=== PATIENT | male | born 1995 | race Caucasian/White ===

== ENCOUNTER → 2017-02-11 | Outpatient (CLI) | payer BC, OTHER ==
--- NOTE | 2017-02-11 11:52 | REP ---
Maxillofacial CT without IV contrast: Axial images are acquired helical scanning and a reformatted in the, plain. The frontal sinuses are clear. Opacification of a single single ethmoid sinus air cell. The sphenoid sinuses are clear. The mastoid air cells are clear. There is a 9.5 mm polyp/cyst anteromedially in the right maxillary sinus. There is a 17 mm polyp/cyst anteriorly inferiorly in the left maxillary sinus. These are compatible with chronic sinusitis. There is mucoid impaction of the ostiomeatal complexes bilaterally. The skull base and sella are unremarkable. The orbits, ocular lenses and globes are unremarkable. Very minimal nasal septal deviation. Impression: There is opacification of a single ethmoid air cell. There is a right maxillary sinus cyst/polyp and there is a left maxillary cyst/polyp. The ostiomeatal complexes demonstrate mucosal impaction bilaterally. Signed by Danny Doll MD 02/11/2017 11:44 A
== END ==
LOC: M RAD 10:07
PROVIDERS: ATTEND Family Medicine
DX: J34.1 Cyst and mucocele of nose and nasal sinus (principal); J34.89 Other specified disorders of nose and nasal sinuses

== ENCOUNTER 2019-10-14 12:57 | Emergency (ER) | payer BC, OTHER ==
[~2019-10-14] VITALS: Ht 180.3 cm; Wt 69.1 kg
[2019-10-14] MEDS ORDERED: NS 1,000 ML IV ONE (13:30)
[2019-10-14 14:02] LABS: BASO % 0.5 % (0.0-1.0); EOS % 0.3 % (0.0-3.0); HEMATOCRIT 43.2 % (42.0-52.0); HEMOGLOBIN 14.7 g/dl (13.5-17.5); LYMPH # 1.3 10^3/uL (1.5-5.0); LYMPH % 19.6 % (24.0-44.0); MEAN CORPUSCULAR HEMOGLOBIN 29.9 pg (27.0-33.0); MEAN CORPUSCULAR VOLUME 87.8 fl (80.0-96.0); MONO # 0.6 10^3/uL (0.0-0.8); MONO % 9.1 % (0.0-5.0); NEUTROPHILS # 4.5 10^3/uL (1.5-8.5); NEUTROPHILS % 70.2 % (36.0-66.0); PLATELET COUNT, AUTOMATED 330 10^3/uL (150-450); RED BLOOD COUNT 4.92 10^6/uL (4.30-6.10); WHITE BLOOD COUNT 6.4 10^3/uL (4.0-10.0)
[2019-10-14 14:14] LABS: INR 1.04; PROTHROMBIN TIME 13.3 SECONDS (11.8-14.0)
[2019-10-14 14:31] LABS: ALBUMIN 3.8 GM/DL (3.2-5.2); ALT/SGPT 18 U/L (12-78); BILIRUBIN,DIRECT 0.1 MG/DL (0.0-0.2); BILIRUBIN,TOTAL 0.4 MG/DL (0.2-1.0); BLOOD UREA NITROGEN 8 MG/DL (7-18); C REACTIVE PROTEIN QUANTITATIV 0.99 MG/DL (0.00-0.30); CALCIUM LEVEL 9.4 MG/DL (8.5-10.1); CARBON DIOXIDE LEVEL 29 MEQ/L (21-32); CHLORIDE LEVEL 104 MEQ/L (98-107); CK-MB VALUE MASS 3.4 NG/ML (<3.6); CPK CREATINE PHOSPHOKINASE 186 U/L (39-308); CREATININE FOR GFR 0.84 MG/DL (0.70-1.30); GLOMERULAR FILTRATION RATE > 60.0 (>60); GLUCOSE, FASTING 102 MG/DL (70-100); LIPASE 102 U/L (73-393); MB/CK RELATIVE INDEX 1.83 (< OR =4); POTASSIUM SERUM 3.8 MEQ/L (3.5-5.1); SODIUM LEVEL 138 MEQ/L (136-145); TOTAL PROTEIN 7.8 GM/DL (6.4-8.2); TROPONIN I < 0.02 NG/ML (< 0.10)
[2019-10-14 14:33] LABS: ERYTHROCYTE SEDIMENTATION RATE 21 mm/hr (0-15)
[2019-10-14] MEDS ORDERED: ISOVUE-370 76% 100ML VIAL (Q9967) As Ordered ONE (14:36)
--- NOTE | 2019-10-14 15:10 | REP ---
Bilateral lower extremity Duplex Doppler venous ultrasound: Real time compression and duplex Doppler interrogation of the bilateral lower extremity deep venous system is performed. Bilaterally, the common femoral, superficial femoral and popliteal veins are fully compressible with transducer pressure and demonstrate normal spontaneous and phasic flow, without evidence of deep venous thrombosis. Impression: No evidence of deep venous thrombosis of the bilateral lower extremity femoral popliteal venous system. Electronically Signed by Danny Benitez MD 10/14/2019 03:01 P
[2019-10-14 16:08] VITALS: BP 148/89
--- NOTE | 2019-10-14 20:50 | ECGEPIP ---
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
--- NOTE | 2019-10-15 07:23 | REP ---
CT ANGIOGRAM CHEST: TECHNIQUE: Axial contrast enhanced images from the thoracic inlet to the upper abdomen using 100 mL Isovue 370 intravenous contrast material with multiplanar reformations. No CT evidence of pulmonary embolism. There is no thoracic aortic aneurysm or dissection. The heart is normal in size. There is no mediastinal, hilar, or chest wall lymphadenopathy. There is no pleural or pericardial effusion. There is no infiltrate in either lung. The visualized upper abdominal structures are unremarkable. IMPRESSION: No CT evidence of pulmonary embolism. No evidence of acute infiltrate. Electronically Signed by Danny Benitez MD 10/15/2019 11:59 A
== END 2019-10-14 16:04 | disposition home or self-care (01) ==
LOC: M ED 12:57
DX: R07.81 Pleurodynia (principal); F19.10 Other psychoactive substance abuse, uncomplicated; R00.0 Tachycardia, unspecified; F17.200 Nicotine dependence, unspecified, uncomplicated
CPT/HCPCS: 71275; 80048; 80076; 82550; 82553; 83690; 84443; 84484; 85025; 85610; 85652; 85730; 86140; 93005; 93041; 93970; 94760; 96360; 96361; 99285; Q9967

== ENCOUNTER 2020-01-20 15:42 | Emergency (ER) | payer BC, OTHER ==
[~2020-01-20] VITALS: Ht 177.8 cm; Wt 74.5 kg
[2020-01-20 16:32] LABS: HEMATOCRIT 45.5 % (42.0-52.0); HEMOGLOBIN 15.5 g/dl (13.5-17.5); MEAN CORPUSCULAR HEMOGLOBIN 30.5 pg (27.0-33.0); MEAN CORPUSCULAR HGB CONC 34.1 g/dl (32.0-36.5); MEAN CORPUSCULAR VOLUME 89.6 fl (80.0-96.0); PLATELET COUNT, AUTOMATED 255 10^3/uL (150-450); RED BLOOD COUNT 5.08 10^6/uL (4.30-6.10); WHITE BLOOD COUNT 6.5 10^3/uL (4.0-10.0)
--- NOTE | 2020-01-20 16:44 | REP ---
Clinical: Substance abuse . Comparison: None . Findings: The mediastinum and cardiac silhouette are stable and within normal limits for portable technique. The lung [place] ri[place] are clear without acute consolidation, effusion, or pneumothorax. Skeletal structures are intact. Impression: No acute cardiopulmonary process appreciated. Electronically Signed by Gurwinder Vargas MD 01/20/2020 04:35 P
[2020-01-20 17:09] LABS: ACETAMINOPHEN LEVEL < 2.0 UG/ML (10.0-30.0); ALBUMIN 3.9 GM/DL (3.2-5.2); ALT/SGPT 19 U/L (12-78); BILIRUBIN,DIRECT < 0.1 MG/DL (0.0-0.2); BILIRUBIN,TOTAL 0.2 MG/DL (0.2-1.0); BLOOD UREA NITROGEN 9 MG/DL (7-18); CALCIUM LEVEL 8.4 MG/DL (8.5-10.1); CARBON DIOXIDE LEVEL 25 MEQ/L (21-32); CHLORIDE LEVEL 107 MEQ/L (98-107); CREATININE FOR GFR 0.76 MG/DL (0.70-1.30); ETHYL ALCOHOL (ETHANOL) 0.005 % (0.000-0.010); GLOMERULAR FILTRATION RATE > 60.0 (>60); GLUCOSE, FASTING 89 MG/DL (70-100); POTASSIUM SERUM 4.1 MEQ/L (3.5-5.1); SALICYLATE LEVEL 1.9 MG/DL (5.0-30.0); SODIUM LEVEL 139 MEQ/L (136-145); TOTAL PROTEIN 7.4 GM/DL (6.4-8.2)
[2020-01-20] MEDS ORDERED: CLOTCRE3 TOP (17:09)
[2020-01-20 17:10] LABS: AMPHETAMINES LEVEL URINE NEGATIVE (NEGATIVE); BARBITURATES URINE NEGATIVE (NEGATIVE); BENZODIAZEPINES URINE POSITIVE (NEGATIVE); CANNABINOIDS URINE POSITIVE (NEGATIVE); COCAINE METABOLITE URINE NEGATIVE (NEGATIVE); METHADONE URINE NEGATIVE (NEGATIVE); OPIATES URINE POSITIVE (NEGATIVE); PHENCYCLIDINE URINE NEGATIVE (NEGATIVE)
[2020-01-20] MEDS ORDERED: NS 1,000 ML IV ONE (17:15)
[2020-01-20 18:15] VITALS: BP 111/57
--- NOTE | 2020-01-20 19:21 | ECGEPIP ---
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
== END 2020-01-20 18:31 | disposition home or self-care (01) ==
LOC: EDBD 15:42 → M ED 15:42
DX: F19.10 Other psychoactive substance abuse, uncomplicated (principal); B35.6 Tinea cruris
CPT/HCPCS: 71045; 80048; 80076; 80307; 84443; 85027; 93005; 93041; 96360; 99285; G0480

== ENCOUNTER 2020-04-26 23:44 | Inpatient (IN) | payer BC, OTHER ==
[~2020-04-26] VITALS: Ht 180.3 cm; Wt 72.5 kg
[~2020-04-26 23:44] MED LIST: CLOTCRE3 TOP
[2020-04-27] MEDS ORDERED: NS 1,000 ML IV ONE (00:45)
[2020-04-27] MEDS ORDERED: cefTRIAXone SOD 2 GM in D5W MINI-BAG PLUS 50 ML IV ONE (00:45)
[2020-04-27 01:07] LABS: BASO % 0.2 % (0.0-1.0); HEMATOCRIT 43.3 % (42.0-52.0); HEMOGLOBIN 14.5 g/dl (13.5-17.5); LYMPH # 0.4 10^3/uL (1.5-5.0); LYMPH % 4.5 % (24.0-44.0); MEAN CORPUSCULAR HEMOGLOBIN 31.7 pg (27.0-33.0); MEAN CORPUSCULAR HGB CONC 33.5 g/dl (32.0-36.5); MEAN CORPUSCULAR VOLUME 94.5 fl (80.0-96.0); MONO # 0.3 10^3/uL (0.0-0.8); MONO % 3.4 % (0.0-5.0); NEUTROPHILS # 8.9 10^3/uL (1.5-8.5); NEUTROPHILS % 91.7 % (36.0-66.0); PLATELET COUNT, AUTOMATED 249 10^3/uL (150-450); RED BLOOD COUNT 4.58 10^6/uL (4.30-6.10); WHITE BLOOD COUNT 9.7 10^3/uL (4.0-10.0)
[2020-04-27 01:16] LABS: INR 1.05; PROTHROMBIN TIME 13.9 SECONDS (11.8-14.0)
[2020-04-27 01:43] LABS: ALBUMIN 3.1 GM/DL (3.2-5.2); ALT/SGPT 30 U/L (12-78); BILIRUBIN,DIRECT < 0.1 MG/DL (0.0-0.2); BILIRUBIN,TOTAL 0.2 MG/DL (0.2-1.0); BLOOD UREA NITROGEN 16 MG/DL (7-18); CALCIUM LEVEL 8.3 MG/DL (8.5-10.1); CARBON DIOXIDE LEVEL 25 MEQ/L (21-32); CHLORIDE LEVEL 109 MEQ/L (98-107); CREATININE FOR GFR 0.73 MG/DL (0.70-1.30); GLOMERULAR FILTRATION RATE > 60.0 (>60); GLUCOSE, FASTING 85 MG/DL (70-100); POTASSIUM SERUM 4.4 MEQ/L (3.5-5.1); SODIUM LEVEL 137 MEQ/L (136-145); THYROID STIMULATING HORMONE 0.209 uIU/ML (0.358-3.740); THYROXINE (T4) 7.1 UG/DL (4.5-12.0)
--- NOTE | 2020-04-27 02:01 | REPVR ---
PROCEDURE INFORMATION: Exam: XR Chest, 1 View Exam date and time: 04/27/2020 1:46 AM Age: 24 years old Clinical indication: Other: Dyspnea/cough TECHNIQUE: Imaging protocol: XR of the chest Views: 1 view. COMPARISON: ND Chest, 1 view 01/20/2020 4:09 PM FINDINGS: Lungs: Bilateral perihilar infiltrates which are new since the prior study. Pleural space: Unremarkable. No pleural effusion. No pneumothorax. Heart/Mediastinum: Upper normal heart size which is increased. Bones/joints: Unremarkable. IMPRESSION: 1. Bilateral perihilar infiltrates which are new since 01/20/2020. 2. Upper normal heart size which appears increased from the prior study. Electronically signed by: James Sanchez On 04/27/2020 02:01:00 AM
[2020-04-27] MEDS ORDERED: ISOVUE-370 76% 100ML VIAL As Ordered ONE (02:21)
--- NOTE | 2020-04-27 03:01 | REPVR ---
PROCEDURE INFORMATION: Exam: CT Angiography Chest With Contrast Exam date and time: 04/27/2020 2:36 AM Age: 24 years old Clinical indication: Other: Hemoptysis; Additional info: Hemoptysis, infiltrates TECHNIQUE: Imaging protocol: Computed tomographic angiography of the chest with intravenous contrast. 3D rendering (Not supervised by radiologist): MIP and/or 3D reconstructed images were created by the technologist. Radiation optimization: All CT scans at this facility use at least one of these dose optimization techniques: automated exposure control; mA and/or kV adjustment per patient size (includes targeted exams where dose is matched to clinical indication); or iterative reconstruction. Contrast material: ISOVUE 370; Contrast volume: 75 ml; Contrast route: INTRAVENOUS (IV); COMPARISON: CT ANGIO CHEST 10/14/2019 2:39 PM FINDINGS: Pulmonary arteries: The main pulmonary artery measures 29 mm. No pulmonary embolism is identified. Aorta: The ascending thoracic aorta measures 33 mm. Lungs: Bilateral ground-glass pulmonary infiltrates which are greatest in the upper lobes and right middle lobe and lingula and are relatively symmetric. There are some rounded areas of early consolidation within the underlying areas ground-glass infiltrate. There are some areas of crazy paving in the upper lobes. There is slight interstitial interlobular thickening in the lung bases. Pleural space: Unremarkable. No pneumothorax. No pleural effusion. Heart: Unremarkable. No cardiomegaly. No pericardial effusion. Lymph nodes: Unremarkable. No enlarged lymph nodes. Bones/joints: Unremarkable. No acute fracture. Soft tissues: Unremarkable. IMPRESSION: 1. Moderate symmetric bilateral pulmonary infiltrates with some rounded localized areas of consolidation which are greatest in the upper lobes, right middle lobe and lingula but also involve the lower lobes to a lesser degree consistent with pneumonia which is new since 10/14/2019. 2. Otherwise negative CTA chest. No pulmonary embolism is identified. Electronically signed by: James Sanchez On 04/27/2020 03:01:15 AM
[2020-04-27] MEDS ORDERED: AZITHROMYCIN INJ 500 MG, VIAL MATE ADAPTER 1 EACH in D5W 250 ML IV ONE (03:30)
[2020-04-27] MEDS ORDERED: ALBUTEROL 90 MCG/ACT 8GM HFA INHALER INH PRN (04:00)
[2020-04-27] MEDS ORDERED: IPRATROPIUM 0.5MG/ALBUTEROL 2.5MG INH SOL UD 3ML (DUONEB) NEB PRN (04:00)
[2020-04-27 04:41] LABS: FREE T3 1.7 PG/ML (2.2-4.0)
[2020-04-27 05:30] VITALS: BP 127/80
--- NOTE | 2020-04-27 05:34 | HPEPDOC ---
[facility] Medical History & Physical Date of Admission Apr 27, 2020 Date of Service: Apr 27, 2020 Attending Physician: Shonda Rodríguez MD History and Physical CHIEF COMPLAINT: hemoptysis HISTORY OF PRESENT ILLNESS: Patient is a 24 year old male who states he laid down for a nap at about 1800 on 04/27 and woke up 2-3 hours later he was woken up by a friend and immediately felt short of breath, coughing up dark, foamy, bloody sputum, and vomiting yellow emesis 2-3x. He ultimately elected to call EMS and was found to be satting in the 80s on room air requiring 4L O2 NC. When asked to quantify the amount of mixed foamy blood he coughed up he indicated it was a little less than half the volume of a nearby 355ml bottle of soda. He states the blood is mixed with dark colored phlegm, denies any nose bleeding, or blood in his emesis, denies any fevers, chills, night sweats, or recent unexpected weight change, skin rashes, hematuria, melena, hematochezia. He denies the use of NSAIDs, blood thinners, does not vape, has no history of lung disease, or bleeding disorders. The patient admits to a fairly extensive drug history, his most recent IV heroin use was ~6 months ago, but he states since then he and his monogamous girlfriend have been checked for HIV/hepatitis and were found to be clean. Since then, he has predominantly been snorting heroin a couple times/week, occasionally smoking meth (most recently 2 weeks ago), and regularly smoking marijuana (from a bong). PAST MEDICAL HISTORY: #. Polysubstance abuse #. Nicotine use disorder PAST SURGICAL HISTORY: None SOCIAL HISTORY: Patient smokes 1/4PPD for "many years" denies vaping, drinks a 6 pack of beer 2/week, and admits to snorting heroin 2x/week (most recently in AM on 04/26/2020), smokes meth (last done 2 weeks ago), has a hx of IV heroin use (last injected 6 months ago), and smokes marijuana from a bong on a regular basis, u nclear if he ever vapes marijuana. He denies cocaine, PCP or any other illicit drug use. 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 No pets at home. Denies any history of foreign travel or travel outside of the [facility]. FAMILY HISTORY: grandmother of lung cancer in her 70's Denies family history of bleeding disorders ALLERGIES: Please see below. REVIEW OF SYSTEMS: Constitutional: Denies fevers, chills, night sweats, or recent unexpected weight change HEENT: Denies Headaches, head trauma, No visual changes or eye pain, denies nose bleeds, or difficulty swallowing Cardiovascular: Denies palpitations, or orthopnea. Admits to pleuritic chest pain Respiratory: Denies wheezing. Admits to cough, hemoptysis, and shortness of breath GI: Denies abdominal pain, diarrhea or constipation, melena, hematochezia, admits to nausea, vomiting. : Denies pain with urination or frequency Musculoskeletal: Denies joint pain or swelling Neuro / Psych: Denies muscle weakness or sensory loss Skin: Denies skin rashes HOME MEDICATIONS: Please see below. PHYSICAL EXAMINATION: VITAL SIGNS: See below GENERAL: Well appearing male laying comfortably in bed intermittently coughing up small teaspoon sized amounts of dark, blood tinged sputum HEENT: NC, AT, EOMI, no scleral icterus, moist mucous membranes, no pharyngeal erythema. NECK: No cervical or supraclavicular lymphadenopathy. No JVD. CARDIOVASCULAR: RRR, normal S1 and S2. No murmurs, gallops, rubs. LUNGS: CTAB with increased insp/exp rhonchi in upper lobes, and exp rhonchi in lower lobes. No wheezes or crackles. Dullness to percussion over R lower lung. ABDOMEN: Soft, non-tender, non-distended, bowel sounds present. No hepatosplenomegaly. No CVA tenderness. EXTREMITIES: No swelling or edema NEUROLOGICAL: No focal or sensory deficits. CN II-XII grossly intact. PSYCHIATRIC: Normal mood and affect. LABORATORY DATA: See below. IMAGIN04/26/2020 CXR: IMPRESSION: 1. Bilateral perihilar infiltrates which are new since 01/20/2020. 2. Upper normal heart size which appears increased from the prior study. 04/26/2020 CTA chest: IMPRESSION: 1. Moderate symmetric bilateral pulmonary infiltrates with some rounded localized areas of consolidation which are greatest in the upper lobes, right middle lobe and lingula but also involve the lower lobes to a lesser degree consistent with pneumonia which is new since 10/14/2019. 2. Otherwise negative CTA chest. No pulmonary embolism is identified. MICROBIOLOGY: Please see below. Assessment/Plan: 24 year old male with history of polysubstance abuse presenting with hemoptysis and bilateral pneumonia. #. Bilateral Pneumonia, CAP with possible aspiration -Starting patient on Levaquin and flagyl to cover for typical, atypical, and anaerobic coverage as he states he has a history of aspiration pneumonia and is almost inappropriately concerned he may have vomited in his sleep, though given the CT this seems less likely. -Steroids, duonebs, pulmonary toilet to help with his dyspneic symptoms as well as the inflammatory component of his lung process. -Procal, sputum culture, blood cultures ordered #. Hemoptysis -Patient is a questionable historian, though he may have coughed up ~175cc of blood tinged sputum, I am not confident this estimation is wholly accurate. Given his normal hgb and hemodynamic stability, I would not classify this as massive hemoptysis or life-threatening hemoptysis at this time. Will continue to monitor for any signs of hemodynamic compromise or clinically worsening symptoms. -DDx includes vascular, rheumatologic, infectious, toxin, and environmental causes based on his history LLOYD, ANCA, UA, HIV, Beta D-glucan, sputum culture. -ddx includes bacterial, fungal pneumonia, lupus, wegeners granulomatosis w/ polyangiitis, goodpasture, heroin hypersensitivity pneumonitis, lipoid pneumonitis, work place exposure associated pneumonitis -Bronchoscopy may be warranted for further evaluation, pulmonology consult placed, day team to contact in AM. #. Tachycardia Patient is in sinus rhythm, this is likely from the underlying pulmonary process or may even be withdrawal symptoms from heroin #. Polysubstance abuse disorder -Nursing order entered to monitor for signs of withdrawal #. Elevated carboxyhemoglobin -Initially ordered as the patient stated he fell asleep next to the stove, this could just be from his cigarette use however #. Low TSH -Checking FT4, FT3 #. Nicotine use disorder -Nicotine patch ordered. DVT prophylaxis: Teds, seqs CODE STATUS: Full code Vital Signs Vital Signs Date Time Temp Pulse Resp B/P (MAP) Pulse Ox O2 Delivery O2 Flow Rate FiO2 04/27/20 01:12 Nasal Cannula 5.0 04/26/20 23:49 98.3 114 20 117/66 96 Laboratory Data Labs 24H Laboratory Tests 2 04/27/20 00:55: Immature Granulocyte % (Auto) 0.2, Neutrophils (%) (Auto) 91.7H, Lymphocytes (%) (Auto) 4.5L, Monocytes (%) (Auto) 3.4, Eosinophils (%) (Auto) 0.0, Basophils (%) (Auto) 0.2, Neutrophils # (Auto) 8.9H, Lymphocytes # (Auto) 0.4L, Monocytes # (Auto) 0.3, Eosinophils # (Auto) 0.0, Basophils # (Auto) 0.0, Nucleated Red Blood Cells % (auto) 0.0, Prothrombin Time 13.9, Prothromb Time International Ratio 1.05, Carboxyhemoglobin 2.9H, Anion Gap 3L, Glomerular Filtration Rate > 60.0, Lactic Acid Level 1.9, Calcium Level 8.3L, Total Bilirubin 0.2, Direct Bilirubin < 0.1, Aspartate Amino Transf (AST/SGOT) 36, Alanine Aminotransferase (ALT/SGPT) 30, Alkaline Phosphatase 84, Total Protein 6.0L, Albumin 3.1L, Albumin/Globulin Ratio 1.1, Thyroid Stimulating Hormone (TSH) 0.209L, Thyroxine (T4) 7.1 CBC/BMP Laboratory Tests 04/27/20 00:55 Microbiology Microbiology 04/27/20 Gram Stain, Received Pending 04/27/20 Sputum Culture, Received Pending 04/27/20 Respiratory Virus Panel (PCR) ([facility]) - Final, Complete 04/27/20 Blood Culture, Received Pending 04/27/20 Blood Culture, Received Pending Home Medications No Active Prescriptions or Reported Meds Allergies Coded Allergies: No Known Allergies (Unverified , 10/14/19) GME ATTESTATION GME ATTESTATION My faculty preceptor for this patient encounter was physically present during the encounter and was fully available. All aspects of the patient interview, examination, medical decision making process, and medical care plan development were reviewed and approved by the faculty preceptor. The faculty preceptor is aware and concurs with the plan as stated in the body of this note and will attest to such by his/her cosignature. ATTENDING NOTE I, Shonda Rodríguez, have independently examined this patient and performed my own physical exam, as well as reviewed the documentation and edited where necessary. I have discussed in detail with the resident / student the findings and plan of treatment as documented by the resident / student and edited their note. I agree with th eir findings and treatment plan and have edited their documentation. I will continue to follow the patient during this hospital stay. HEMANTH BELTRÁN DO Apr 27, 2020 05:34 Shonda Rodríguez MD Apr 27, 2020 06:39
[2020-04-27] MEDS: ACETAMINOPHEN TAB 650MG DOSE (2X325MG) PO PRN ×2 (05:48→21:17)
[2020-04-27] MEDS: metroNIDAZOLE 500 MG in IV 1 EA IV SCH ×3 (05:49→21:15)
[2020-04-27 07:47] LABS: HEMOGLOBIN 14.2 g/dl (13.5-17.5); MEAN CORPUSCULAR HEMOGLOBIN 31.5 pg (27.0-33.0); MEAN CORPUSCULAR HGB CONC 33.8 g/dl (32.0-36.5); MEAN CORPUSCULAR VOLUME 93.1 fl (80.0-96.0); PLATELET COUNT, AUTOMATED 208 10^3/uL (150-450); RED BLOOD COUNT 4.51 10^6/uL (4.30-6.10); WHITE BLOOD COUNT 11.3 10^3/uL (4.0-10.0)
[2020-04-27 08:00] VITALS: BP 142/72
[2020-04-27] MEDS ORDERED: LevoFLOXacin IV 500 MG in IV 1 EA IV SCH (08:00)
[2020-04-27] MEDS: LevoFLOXacin IV 750 MG in IV 1 EA IV SCH (08:03)
[2020-04-27] MEDS: NICOTINE 7 MG/24 HR TRANSDERMAL TD SCH (08:03)
[2020-04-27 08:06] LABS: BLOOD UREA NITROGEN 12 MG/DL (7-18); CALCIUM LEVEL 8.5 MG/DL (8.5-10.1); CARBON DIOXIDE LEVEL 23 MEQ/L (21-32); CHLORIDE LEVEL 107 MEQ/L (98-107); CREATININE FOR GFR 0.72 MG/DL (0.70-1.30); GLOMERULAR FILTRATION RATE > 60.0 (>60); GLUCOSE, FASTING 91 MG/DL (70-100); POTASSIUM SERUM 4.5 MEQ/L (3.5-5.1); SODIUM LEVEL 136 MEQ/L (136-145)
[2020-04-27 08:42] LABS: APPEARANCE, URINE CLEAR (CLEAR); BACTERIA, URINE AUTO NEGATIVE (NEGATIVE); BILIRUBIN, URINE AUTO NEGATIVE (NEGATIVE); BLOOD, URINE BLOOD NEGATIVE (NEGATIVE); COLOR, URINE COLORLESS (YELLOW); GLUCOSE, URINE (UA) AUTO NEGATIVE (NEGATIVE); KETONE, URINE AUTO NEGATIVE (NEGATIVE); LEUKOCYTE ESTERASE, URINE AUTO NEGATIVE (NEGATIVE); NITRITE, URINE AUTO NEGATIVE (NEGATIVE); PROTEIN, URINE AUTO NEGATIVE (NEGATIVE); RBC, URINE AUTO 0 /HPF (0-3); SPECIFIC GRAVITY URINE AUTO 1.011 (1.002-1.035); SQUAMOUS EPITHELIAL CELL UR AU 0 /HPF (0-6); UROBILINOGEN, URINE AUTO 0.2 mg/dL (0.0-2.0); WBC, URINE AUTO 0 /HPF (0-3)
[2020-04-27] MEDS: METHADONE 5 MG TAB (S0109) PO SCH ×2 (09:00→21:15)
[2020-04-27] MEDS ORDERED: ONDANSETRON 4MG/2ML VIAL IV PRN (11:00)
[2020-04-27] MEDS ORDERED: diphenhydrAMINE 50MG/ML VIAL (J1200) IV ONE (11:30)
[2020-04-27 12:00] VITALS: BP 139/90
[2020-04-27] MEDS ORDERED: KETOROLAC 30 MG/ML 1ML VIAL IV ONE (13:00)
[2020-04-27 16:00] VITALS: BP 142/87
[2020-04-27 20:00] VITALS: BP 147/79
[2020-04-27] MEDS ORDERED: diphenhydrAMINE 25MG CAP PO ONE (22:45)
[2020-04-28] VITALS: BP 135/88
[2020-04-28 04:00] VITALS: BP 137/81
[2020-04-28] MEDS: metroNIDAZOLE 500 MG in IV 1 EA IV SCH (05:34)
[2020-04-28 06:05] LABS: HEMATOCRIT 40.4 % (42.0-52.0); HEMOGLOBIN 13.7 g/dl (13.5-17.5); MEAN CORPUSCULAR HEMOGLOBIN 31.5 pg (27.0-33.0); MEAN CORPUSCULAR HGB CONC 33.9 g/dl (32.0-36.5); MEAN CORPUSCULAR VOLUME 92.9 fl (80.0-96.0); PLATELET COUNT, AUTOMATED 183 10^3/uL (150-450); RED BLOOD COUNT 4.35 10^6/uL (4.30-6.10); WHITE BLOOD COUNT 11.1 10^3/uL (4.0-10.0)
[2020-04-28 06:24] LABS: BLOOD UREA NITROGEN 8 MG/DL (7-18); CALCIUM LEVEL 8.2 MG/DL (8.5-10.1); CARBON DIOXIDE LEVEL 26 MEQ/L (21-32); CHLORIDE LEVEL 109 MEQ/L (98-107); CREATININE FOR GFR 0.71 MG/DL (0.70-1.30); GLOMERULAR FILTRATION RATE > 60.0 (>60); GLUCOSE, FASTING 94 MG/DL (70-100); SODIUM LEVEL 141 MEQ/L (136-145)
[2020-04-28 07:38] VITALS: BP 147/99
[2020-04-28] MEDS: METHADONE 5 MG TAB (S0109) PO SCH (08:20)
[2020-04-28] MEDS: LevoFLOXacin IV 750 MG in IV 1 EA IV SCH (08:20)
[2020-04-28] MEDS: NICOTINE 7 MG/24 HR TRANSDERMAL TD SCH (08:29)
[2020-04-28] MEDS ORDERED: AUGM875T28 PO (10:55)
[2020-04-28 10:57] LABS: HIV 1&2 SCREEN CENTAUR NEGATIVE (NEGATIVE)
--- NOTE | 2020-04-28 11:11 | DS.PDOC ---
Discharge Summary General Date of Admission Apr 27, 2020 at 04:21 Date of Discharge 04/28/20 Discharge Summary PROCEDURES PERFORMED DURING STAY: [None]. DISCHARGE DIAGNOSES: Bilateral Aspiration Pneumonia Acute respiratory failure with Hypoxia now resolved. Poly substance abuse Smoker Low TSH, Low Free T3 COMPLICATIONS/CHIEF COMPLAINT: Bilateral Pneumonia. HOSPITAL COURSE: 24 year old male with history of polysubstance abuse snorted heroin in the afternoon and went to sleep and and vomitied in sleep as when he was woken up by his friend his pillow was soaked. On waking he started coughing and spitting up blood and was SOB so came to ED. He was found to have Bilateral Pneumonia and hypoxia. Aspiration pneumonia 1/2 blood culture form 04/26/20 positive for gram positive cocci in clusters MRSA pcr negative I think this is contaminant. Received levofloxacin and metronidazole in hospital . will give Augmentin on discharge PMD to follow up final culture reports. Hemoptysis now resolved due to bilateral pneumonia. Polysubstance abuse disorder wit mild withdrawal in hospital was given methadone and benadryl. Elevated carboxyhemoglobin Initially ordered as the patient stated he fell asleep next to the stove, this could just be from his cigarette use however Low TSH and low free T3 follow up PMD. Nicotine use disorder counselled about quitting nicotine patch DISCHARGE MEDICATIONS: Please see below. ALLERGIES: Please see below. PHYSICAL EXAMINATION ON DISCHARGE: VITAL SIGNS: Please see below. GENERAL: Well appearing male sitting comfortably in bed , in no distress. HEENT: NC, AT, EOMI, no scleral icterus, moist mucous membranes, no pharyngeal erythema. NECK: No cervical or supraclavicular lymphadenopathy. No JVD. CARDIOVASCULAR: RRR, normal S1 and S2. No murmurs, gallops, rubs. LUNGS: clear to auscultation bilaterally. ABDOMEN: Soft, non-tender, non-distended, bowel sounds present. No hepatosplenomegaly. No CVA tenderness. EXTREMITIES: No swelling or edema NEUROLOGICAL: No focal or sensory deficits. CN II-XII grossly intact. PSYCHIATRIC: Normal mood and affect. LABORATORY DATA: Please see below. IMAGING: CTA of chest 1. Moderate symmetric bilateral pulmonary infiltrates with some rounded localized areas of consolidation which are greatest in the upper lobes, right middle lobe and lingula but also involve the lower lobes to a lesser degree consistent with pneumonia which is new since 10/14/2019. 2. No Pulmonary embolism ACTIVITY: [As tolerated]. DIET: As tolerated DISCHARGE PLAN: Home DISPOSITION: . DISCHARGE INSTRUCTIONS: PMD in 2 weeks ITEMS TO FOLLOWUP ON ON OUTPATIENT: Final blood cultures and sputum cultures. DISCHARGE CONDITION: [Stable]. TIME SPENT ON DISCHARGE: 35 minutes. Vital Signs/I&Os Vital Signs Date Time Temp Pulse Resp B/P (MAP) Pulse Ox O2 Delivery O2 Flow Rate FiO2 04/28/20 07:42 99.1 04/28/20 07:38 93 18 147/99 (115) 97 04/28/20 05:43 Room Air 04/28/20 05:30 2.0 I&O- Last 24 Hours up to 6 AM 04/28/20 06:00 Intake Total 1860 ml Output Total 5220 ml Balance -3360 ml Laboratory Data Labs 24H Laboratory Tests 2 04/28/20 05:39: Nucleated Red Blood Cells % (auto) 0.0, Anion Gap 6L, Glomerular Filtration Rate > 60.0, Calcium Level 8.2L CBC/BMP Laboratory Tests 04/28/20 05:39 Microbiology Microbiology 04/27/20 Gram Stain - Final, Resulted 04/27/20 Sputum Culture, Resulted Pending 04/27/20 Respiratory Virus Panel (PCR) ([facility]) - Final, Complete 04/27/20 Blood Culture - Preliminary, Resulted 04/27/20 Blood Culture - Preliminary, Resulted No growth after 24 hours . All specim... Discharge Medications Scheduled Amoxicillin/Potassium Clav (Augmentin 875-125 Tablet) 1 Each Tablet, 1 TAB PO BID Allergies Coded Allergies: No Known Allergies (Unverified , 10/14/19) JAYEDN RUSSELL MD Apr 28, 2020 11:11
[2020-04-28 11:58] VITALS: BP 163/85
[2020-04-29 16:11] LABS: ANTINUCLEAR ANTIBODIES DIRECT Negative (Negative)
== END 2020-04-28 13:30 | disposition home or self-care (01) | DRG 137 ==
LOC: M ED 23:44 → M ED INP 04-27 04:21 → M PCU 04-27 05:30
PROVIDERS: ADMIT Internal Medicine; ATTEND Internal Medicine Nephrology
DX: J69.0 Pneumonitis due to inhalation of food and vomit (principal); R04.2 Hemoptysis; F11.10 Opioid abuse, uncomplicated; F12.10 Cannabis abuse, uncomplicated; F17.200 Nicotine dependence, unspecified, uncomplicated

== ENCOUNTER 2020-12-28 00:36 | Emergency (ER) | payer BC, OTHER, MEDICAID ==
[~2020-12-28] VITALS: Ht 172.7 cm; Wt 66.6 kg
[~2020-12-28 00:36] MED LIST changes: +AUGM875T28 PO
[2020-12-28] MEDS ORDERED: NS 1,000 ML IV SCH (00:45)
[2020-12-28 00:56] LABS: BASO % 0.7 % (0.0-1.0); EOS # 0.1 10^3/uL (0.0-0.5); EOS % 1.5 % (0.0-3.0); HEMATOCRIT 46.5 % (42.0-52.0); HEMOGLOBIN 15.5 g/dl (13.5-17.5); LYMPH # 1.9 10^3/uL (1.5-5.0); LYMPH % 31.8 % (24.0-44.0); MEAN CORPUSCULAR HEMOGLOBIN 30.6 pg (27.0-33.0); MEAN CORPUSCULAR HGB CONC 33.3 g/dl (32.0-36.5); MEAN CORPUSCULAR VOLUME 91.9 fl (80.0-96.0); MONO # 0.5 10^3/uL (0.0-0.8); MONO % 8.9 % (2.0-8.0); NEUTROPHILS # 3.4 10^3/uL (1.5-8.5); NEUTROPHILS % 56.9 % (36.0-66.0); PLATELET COUNT, AUTOMATED 225 10^3/uL (150-450); RED BLOOD COUNT 5.06 10^6/uL (4.30-6.10)
[2020-12-28 01:34] LABS: ACETAMINOPHEN LEVEL < 2.0 UG/ML (10.0-30.0); ALT/SGPT 33 U/L (12-78); BILIRUBIN,DIRECT < 0.1 MG/DL (0.0-0.2); BILIRUBIN,TOTAL 0.3 MG/DL (0.2-1.0); BLOOD UREA NITROGEN 11 MG/DL (7-18); CALCIUM LEVEL 10.1 MG/DL (8.5-10.1); CARBON DIOXIDE LEVEL 31 MEQ/L (21-32); CHLORIDE LEVEL 103 MEQ/L (98-107); CPK CREATINE PHOSPHOKINASE 199 U/L (39-308); CREATININE FOR GFR 0.99 MG/DL (0.70-1.30); ETHYL ALCOHOL (ETHANOL) < 0.003 % (0.000-0.010); GLOMERULAR FILTRATION RATE > 60.0 (>60); GLUCOSE, FASTING 127 MG/DL (70-100); POTASSIUM SERUM 4.3 MEQ/L (3.5-5.1); SALICYLATE LEVEL < 1.7 MG/DL (5.0-30.0); SODIUM LEVEL 140 MEQ/L (136-145); TOTAL PROTEIN 7.3 GM/DL (6.4-8.2)
[2020-12-28 05:15] VITALS: BP 135/87
[2020-12-28] MEDS ORDERED: NARC1SPR NARES (05:21)
--- NOTE | 2020-12-28 07:58 | ECGEPIP ---
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
== END 2020-12-28 05:30 | disposition home or self-care (01) ==
LOC: M ED 00:36
DX: T40.2X1A Poisoning by other opioids, accidental (unintentional), initial encounter (principal); I10 Essential (primary) hypertension